=== PATIENT | female | born 1960 | race Caucasian/White ===

== ENCOUNTER 2018-11-23 10:44 | Day surgery (SDC) | payer BC ==
[2018-11-23] MEDS ORDERED: PROPOFOL 10 MG/ML VIAL IV ONE (10:45)
[2018-11-23] MEDS ORDERED: LIDOCAINE 2% MDV (20MG/ML) 20ML VIAL IV ONE (10:45)
--- NOTE | 2018-11-25 13:40 | Operative Note ---
OPERATION: COLONOSCOPY to the cecum with cold snare polypectomy x2, biopsy, and Endoclip placement x1. INDICATION: Family history of colon cancer in her father. Patient's last colonoscopy was in [address] Allen. ANESTHESIA: Intravenous sedation was administered by the department of anesthesiology and included Diprivan titrated to effect. PROCEDURE: Following informed consent from this alert individual including a discussion of the risks and benefits of the procedure and an opportunity for the patient to ask questions, the patient was in the left lateral decubitus position. A digital rectal examination was performed. No abnormalities were noted. Following this, the Olympus FET814 video colonoscope was inserted into the rectum without resistance. The rectal mucosa had a normal appearance with normal folds and distensibility. The colonoscope was advanced up through the colon to the level of the cecum with some difficulty due to redundancy of the colon. Abdominal pressure support was applied and the patient was placed in the supine position. In this manner, the cecum was reached and well visualized. From the base of the cecum, the colonoscope was then slowly withdrawn. In the distal transverse colon near the splenic flexure, there was a sessile 8 mm polyp noted which was removed with cold snare polypectomy. It was suctioned through the colonoscope into a collection trap. There was a second larger polyp noted in the descending colon measuring 1 cm across the head, and this polyp was pedunculated and removed with electrocautery snare. An Endoclip was placed over the polypectomy site for closure. At the cecum, the ileocecal valve seemed to be slightly prominent on one end and for this reason, multiple biopsies of it were taken. No discrete polyp was noted endoscopically. The colonoscope was ultimately withdrawn back into the rectum where retroflexion accomplished following air insufflation revealed small internal hemorrhoids. The endoscope was straightened and removed. The patient tolerated the procedure well and was returned to the recovery area in stable condition. IMPRESSION: 1. Redundant colon. 2. Distal transverse colon polyp measuring 8 mm in size removed with cold snare polypectomy. 3. Descending colon polyp measuring 1 cm across the head, pedunculated, removed with electrocautery snare polypectomy. Endoclip placed at the polypectomy site for closure. 4. Small internal hemorrhoids. RECOMMENDATIONS: Further recommendations will be forthcoming pending results of pathology obtained today. The patient will be advised to have surveillance colonoscopy pending biopsy in 3 years' time. Followup will also be with Dr. Steiner. As always, thank you for allowing me to participate in the care of your patient. AMA
== END 2018-11-23 13:28 | disposition home or self-care (01) ==
LOC: HOP 10:44
PROVIDERS: ATTEND Internal Medicine Gastroenterology
DX: Z12.11 Encounter for screening for malignant neoplasm of colon (principal); Q43.8 Other specified congenital malformations of intestine; D12.4 Benign neoplasm of descending colon; D12.3 Benign neoplasm of transverse colon; K63.5 Polyp of colon; Z80.0 Family history of malignant neoplasm of digestive organs; I10 Essential (primary) hypertension